=== PATIENT | male | born 1960 | race Caucasian/White ===

== ENCOUNTER 2021-08-28 18:42 | Emergency (ER) | payer OTHER, SELFPAY ==
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
[2021-08-28 19:59] VITALS: BP 144/78; PULSE 66; RESP 18; TEMP 36.9; O2SAT 94
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
[2021-08-28 22:02] VITALS: BP 142/61; PULSE 63; RESP 18; O2SAT 94
[2021-08-28] MEDS: HYDROcodone/acetaminophen (*CRX) 5-325 MG TABLET 1 TAB PO (22:40)
[2021-08-28] MEDS: KETOROLAC 30 MG/ML VIAL (*BKC) IM (22:41)
[2021-08-28] MEDS: diazePAM INJ (*CRX) 10 MG/2 ML SYRINGE 5 MG IM (22:42)
[2021-08-28 22:48] VITALS: BP 152/58; PULSE 61; RESP 16; O2SAT 95
[2021-08-28 23:55] VITALS: BP 146/64; PULSE 61; RESP 14; O2SAT 94
== END 2021-08-28 23:56 | disposition home or self-care (01) ==
PROVIDERS: Emergency Provider Emergency Medicine
DX: S16.1XXA Strain of muscle, fascia and tendon at neck level, initial encounter (principal); E11.9 Type 2 diabetes mellitus without complications; I10 Essential (primary) hypertension; V40.0XXA Car driver injured in collision with pedestrian or animal in nontraffic accident, initial encounter
CPT/HCPCS: 72125; 96372; 99284; A9270; J1885; J3360